=== PATIENT | male | born 1940 | race Two or more races ===

== ENCOUNTER 2020-02-17 11:52 | Emergency (ER) | payer OTHER ==
[~2020-02-17] VITALS: Ht 170.2 cm; Wt 93.4 kg
[~2020-02-17 11:52] MED LIST: CLONIDINE; LISIPOW; NORVASC
[2020-02-17] MEDS ORDERED: cloNIDine HCL 0.1 MG TAB PO ONE (12:15)
[2020-02-17 12:52] LABS: Basophils # (auto) 0.1 10 ^3/uL (0-0.2); Basophils % (auto) 0.8 % (0.0-2.0); Eosinophils # (auto) 0.3 10 ^3/uL (0-0.8); Eosinophils % (auto) 4.1 % (0.0-7.0); Hematocrit 50.1 % (41.0-53.0); Hemoglobin 17.2 g/dL (13.5-17.5); Lymphocytes # (auto) 2.1 10 ^3/uL (0.4-5.4); Lymphocytes % (auto) 25.4 % (10.0-50.0); Mean Corpuscular Hemoglobin 32.2 pg (28.0-32.0); Mean Corpuscular Hgb Conc. 34.4 g/dL (32.0-36.0); Mean Corpuscular Volume 93.6 fL (80.0-100.0); Monocytes # (auto) 0.9 10 ^3/uL (0-1.3); Monocytes % (auto) 11.6 % (0.0-12.0); Neutrophils # (auto) 4.7 10 ^3/uL (1.6-8.6); Neutrophils % (auto) 58.1 % (37.0-80.0); Nucleated Red Blood Cells % 0.1 %; Platelet Count (auto) 187 10^3/uL (140-450); Red Blood Cells 5.35 10^6/uL (4.5-5.90); Red Cell Distribution Width 13.9 % (11.8-14.3); White Blood Cell 8.1 10^3/uL (4.4-10.8)
[2020-02-17] MEDS ORDERED: hydrALAZINE HCL 20 MG/ML VL IV ONE (13:00)
[2020-02-17 13:05] LABS: Albumin 3.6 g/dL (3.4-5.0); Anion Gap 9 (5-15); Blood Urea Nitrogen 18 mg/dL (7-18); Calcium 8.7 mg/dL (8.5-10.1); Carbon Dioxide 22 mmol/L (21-32); Chloride 107 mmol/L (98-107); Glucose 121 mg/dL (74-106); Potassium 3.9 mmol/L (3.5-5.1); Sodium 138 mmol/L (136-145)
[2020-02-17 13:08] LABS: Urine Bacteria NONE SEEN /hpf (None Seen); Urine Blood Negative /uL (Negative); Urine Specific Gravity 1.005 (1.001-1.035); Urine WBC <1 /hpf (0 - 3)
[2020-02-17 13:10] LABS: Alanine Aminotransferase 33 U/L (16-61); Alkaline Phosphatase 82 U/L (45-117); Aspartate Aminotransferase 26 U/L (15-37); BUN/Creatinine Ratio 19.6; Bilirubin, Total 0.9 mg/dL (0.2-1.0); GFR African American 102 mL/min; GFR Non-African American 85 mL/min; Total Protein 7.7 g/dL (6.4-8.2)
[2020-02-17] MEDS ORDERED: cefTRIAXone 1GM/50ML D5W 50 ML IV ONE (13:15)
[2020-02-17] MEDS ORDERED: AZITHROMYCIN 500MG/ 250ML 250 ML IV ONE (13:15)
[2020-02-17 16:52] VITALS: BP 172/60
== END 2020-02-17 17:06 | disposition home or self-care (01) ==
LOC: ER 11:52
DX: I10 Essential (primary) hypertension (principal); J18.9 Pneumonia, unspecified organism; I25.10 Atherosclerotic heart disease of native coronary artery without angina pectoris
CPT/HCPCS: 36415; 71046; 80053; 81001; 84484; 85025; 87040; 93005; 96365; 96366; 96367; 99285; J0456; J0696

== ENCOUNTER → 2020-06-30 | Emergency (ER) | payer OTHER ==
[~2020-06-30] VITALS: Ht 170.2 cm; Wt 95.3 kg
[~2020-06-30] MED LIST changes: +IOHEXOL 350 MG/ML 100ML IJ ONE; +LABETALOL HCL 5 MG/ML 4ML SYRINGE IV ONE; +PIPERACILLIN-TAZOB 3.375GM 100 ML IV ONE; +VANCOMYCIN 1GM/250ML 250 ML IV ONE; +cloNIDine HCL 0.1 MG TAB PO ONE
[2020-06-30 22:10] LABS: Basophils # (auto) 0.1 10 ^3/uL (0-0.2); Basophils % (auto) 0.7 % (0.0-2.0); Eosinophils # (auto) 0.2 10 ^3/uL (0-0.8); Eosinophils % (auto) 2.5 % (0.0-7.0); Hematocrit 50.2 % (41.0-53.0); Hemoglobin 17.3 g/dL (13.5-17.5); Lymphocytes # (auto) 2.1 10 ^3/uL (0.4-5.4); Lymphocytes % (auto) 22.2 % (10.0-50.0); Mean Corpuscular Hemoglobin 32.3 pg (28.0-32.0); Mean Corpuscular Hgb Conc. 34.6 g/dL (32.0-36.0); Mean Corpuscular Volume 93.4 fL (80.0-100.0); Monocytes # (auto) 1.1 10 ^3/uL (0-1.3); Monocytes % (auto) 11.1 % (0.0-12.0); Neutrophils % (auto) 63.5 % (37.0-80.0); Nucleated Red Blood Cells % 0.1 %; Platelet Count (auto) 208 10^3/uL (140-450); Red Blood Cells 5.37 10^6/uL (4.5-5.90); Red Cell Distribution Width 13.6 % (11.8-14.3); White Blood Cell 9.5 10^3/uL (4.4-10.8)
[2020-06-30 22:15] LABS: Urine Bacteria NONE SEEN /hpf (None Seen); Urine Blood Negative /uL (Negative); Urine Hyaline Cast FEW /lpf (0 - 2); Urine Mucus FEW (None Seen); Urine Specific Gravity 1.016 (1.001-1.035); Urine WBC 2 /hpf (0 - 3)
[2020-06-30 22:27] LABS: Albumin 3.9 g/dL (3.4-5.0); Anion Gap 6 (5-15); Blood Urea Nitrogen 21 mg/dL (7-18); Calcium 8.7 mg/dL (8.5-10.1); Carbon Dioxide 23 mmol/L (21-32); Chloride 110 mmol/L (98-107); Glucose 108 mg/dL (74-106); Magnesium 2.6 mg/dL (1.6-2.6); Sodium 139 mmol/L (136-145)
[2020-06-30 22:33] LABS: Alanine Aminotransferase 41 U/L (16-61); Alkaline Phosphatase 95 U/L (45-117); Aspartate Aminotransferase 25 U/L (15-37); BUN/Creatinine Ratio 18.9; Bilirubin, Total 0.8 mg/dL (0.2-1.0); GFR African American 82 mL/min; GFR Non-African American 68 mL/min
[2020-06-30 23:06] LABS: INR 1.02 (0.9-1.15); Partial Thromboplastin Time 27.6 sec (23.0-31.2)
[2020-07-01 04:04] VITALS: BP 138/65
== END | disposition home or self-care (01) ==
LOC: ER 20:52
DX: G04.91 Myelitis, unspecified (principal); I10 Essential (primary) hypertension; E78.5 Hyperlipidemia, unspecified; I25.10 Atherosclerotic heart disease of native coronary artery without angina pectoris
CPT/HCPCS: 36415; 70450; 71045; 71275; 72125; 72131; 80053; 81001; 83605; 83735; 83880; 84443; 84484; 85025; 85379; 85610; 85652; 85730; 86141; 87040; 93005; 96365; 96366; 96368

== ENCOUNTER 2020-11-23 09:48 | Inpatient (IN) | payer OTHER ==
[~2020-11-23] VITALS: Ht 175.3 cm; Wt 89.4 kg
[~2020-11-23 09:48] MED LIST changes: -IOHEXOL 350 MG/ML 100ML IJ ONE; -LABETALOL HCL 5 MG/ML 4ML SYRINGE IV ONE; -PIPERACILLIN-TAZOB 3.375GM 100 ML IV ONE; -VANCOMYCIN 1GM/250ML 250 ML IV ONE; -cloNIDine HCL 0.1 MG TAB PO ONE
[2020-11-23 11:02] LABS: Basophils # (auto) 0 10 ^3/uL (0-0.2); Basophils % (auto) 0.5 % (0.0-2.0); Eosinophils # (auto) 0.2 10 ^3/uL (0-0.8); Eosinophils % (auto) 1.9 % (0.0-7.0); Hematocrit 46.8 % (41.0-53.0); Hemoglobin 16.6 g/dL (13.5-17.5); Lymphocytes % (auto) 19.2 % (10.0-50.0); Mean Corpuscular Hemoglobin 33.1 pg (28.0-32.0); Mean Corpuscular Hgb Conc. 35.5 g/dL (32.0-36.0); Mean Corpuscular Volume 93.4 fL (80.0-100.0); Monocytes # (auto) 0.9 10 ^3/uL (0-1.3); Monocytes % (auto) 9.3 % (0.0-12.0); Neutrophils % (auto) 69.1 % (37.0-80.0); Nucleated Red Blood Cells % 0.1 %; Platelet Count (auto) 211 10^3/uL (140-450); Red Blood Cells 5.01 10^6/uL (4.5-5.90); Red Cell Distribution Width 13.3 % (11.8-14.3); White Blood Cell 10.2 10^3/uL (4.4-10.8)
[2020-11-23 11:20] LABS: Albumin 3.2 g/dL (3.4-5.0); Anion Gap 4 (5-15); Blood Urea Nitrogen 21 mg/dL (7-18); Calcium 8.2 mg/dL (8.5-10.1); Carbon Dioxide 25 mmol/L (21-32); Chloride 109 mmol/L (98-107); Glucose 173 mg/dL (74-106); Potassium 3.7 mmol/L (3.5-5.1); Sodium 138 mmol/L (136-145)
[2020-11-23 11:24] LABS: Alanine Aminotransferase 40 U/L (16-61); Alkaline Phosphatase 92 U/L (45-117); Aspartate Aminotransferase 20 U/L (15-37); BUN/Creatinine Ratio 20.6; Bilirubin, Total 0.9 mg/dL (0.2-1.0); GFR African American 91 mL/min; GFR Non-African American 75 mL/min; Total Protein 7.4 g/dL (6.4-8.2)
[2020-11-23] MEDS ORDERED: SODIUM CHLORIDE 0.9% 1,000 ML IV ONE (12:15)
[2020-11-23] MEDS ORDERED: methylPREDNISolone SOD SUCC 125 MG/2 ML VL IV ONE (12:30)
[2020-11-23] MEDS ORDERED: ATORVASTATIN 20 MG TAB PO ONE (13:00)
[2020-11-23] MEDS ORDERED: HEPARIN DRIP/D5W 100UNITS/ML 250 ML IV SCH ×2 (13:00→13:15)
[2020-11-23] MEDS ORDERED: NITROGLYCERIN 0.2MG/HR TOPICAL PATCH TD ONE (13:00)
[2020-11-23 13:04] LABS: INR 1.03 (0.9-1.15); Partial Thromboplastin Time 29.6 sec (23.0-31.2)
[2020-11-23] MEDS ORDERED: SODIUM CHL 0.9% 50 ML ONE (13:04)
[2020-11-23] MEDS ORDERED: fentaNYL CITRATE 100 MCG/2 ML VL ONE (13:04)
[2020-11-23] MEDS ORDERED: ANGIOMAX 250 MG VIAL IV ONE (13:04)
[2020-11-23] MEDS ORDERED: MIDAZOLAM HCL 1MG/1ML-2 ML VIAL ONE (13:04)
[2020-11-23] MEDS ORDERED: IOHEXOL 350 MG/ML 100ML IJ ONE (13:10)
[2020-11-23] MEDS ORDERED: LIDOCAINE 2%HCL (LOCAL ANESTH.) INJ 20ML MDV ONE (13:10)
[2020-11-23] MEDS ORDERED: EPINEPHrine HCL 1 MG/10 ML SYRG ONE (13:52)
[2020-11-23] MEDS ORDERED: ATROPINE SULF 1 MG/10ml SYR ONE (13:52)
[2020-11-23] MEDS ORDERED: CLOPIDOGREL 300 MG TAB ONE (14:27)
[2020-11-23] MEDS ORDERED: ASPirin 325 MG TAB ONE (14:27)
[2020-11-23] MEDS ORDERED: LABETALOL HCL 5 MG/ML ML 20ML VIAL IV ONE (14:47)
[2020-11-23] MEDS ORDERED: NITROGLYCERIN 0.4 MG SL TAB SL PRN (15:30)
[2020-11-23] MEDS ORDERED: MORPHINE SULF INJ 2 MG/ML SYRINGE 1ML IV PRN (15:30)
[2020-11-23] MEDS ORDERED: LABETALOL HCL 5 MG/ML 4ML SYRINGE IV PRN (15:30)
[2020-11-23] MEDS ORDERED: SUCRALFATE 1 GM/10 ML ORAL SUSP ONE (16:56)
[2020-11-23] MEDS ORDERED: SUCRALFATE 1 GM TAB PO ONE (17:00)
[2020-11-23] MEDS ORDERED: LISI-646 PO (18:56)
[2020-11-23] MEDS ORDERED: ATOR40TA52 PO (18:56)
[2020-11-23] MEDS ORDERED: CLON0.3T PO (18:56)
[2020-11-23 22:00] VITALS: BP 187/120
[2020-11-23] MEDS ORDERED: METOPROLOL SUCCINATE XL 50 MG TAB PO SCH (22:00)
[2020-11-23] MEDS: ONDANSETRON ODT 4 MG TAB PO PRN (22:22)
[2020-11-23] MEDS: PANTOPRAZOLE 40 MG/10 ML VIAL INJ IV SCH (22:47)
[2020-11-23] MEDS: ATORVASTATIN 20 MG TAB PO SCH (22:48)
[2020-11-24] MEDS: LABETALOL HCL 5 MG/ML 4ML SYRINGE IV PRN ×6 (00:12→16:40)
[2020-11-24] MEDS: ONDANSETRON ODT 4 MG TAB PO PRN (03:15)
[2020-11-24 05:00] VITALS: BP 172/93
[2020-11-24 06:50] LABS: Basophils # (auto) 0 10 ^3/uL (0-0.2); Eosinophils # (auto) 0 10 ^3/uL (0-0.8); Hematocrit 41.9 % (41.0-53.0); Lymphocytes # (auto) 1.3 10 ^3/uL (0.4-5.4); Lymphocytes % (auto) 6.2 % (10.0-50.0); Mean Corpuscular Hemoglobin 33.2 pg (28.0-32.0); Mean Corpuscular Hgb Conc. 35.7 g/dL (32.0-36.0); Mean Corpuscular Volume 92.9 fL (80.0-100.0); Monocytes # (auto) 1.2 10 ^3/uL (0-1.3); Monocytes % (auto) 5.5 % (0.0-12.0); Neutrophils # (auto) 18.5 10 ^3/uL (1.6-8.6); Neutrophils % (auto) 88.3 % (37.0-80.0); Platelet Count (auto) 208 10^3/uL (140-450); Red Blood Cells 4.51 10^6/uL (4.5-5.90); Red Cell Distribution Width 13.2 % (11.8-14.3)
[2020-11-24 08:00] VITALS: BP 159/86
[2020-11-24] MEDS: ASPirin-EC 81 mg tab PO SCH (10:00)
[2020-11-24] MEDS: CLOPIDOGREL BISULFATE 75 MG TAB PO SCH (10:00)
[2020-11-24] MEDS: METOPROLOL TARTRATE 50 MG TAB PO SCH ×2 (10:01→21:23)
[2020-11-24] MEDS: PANTOPRAZOLE 40 MG/10 ML VIAL INJ IV SCH ×2 (10:02→21:23)
[2020-11-24] MEDS: LISINOPRIL 10 MG TAB PO SCH ×2 (10:02→21:24)
[2020-11-24 13:25] LABS: Urine Bacteria NONE SEEN /hpf (None Seen); Urine Blood Negative /uL (Negative); Urine Budding Yeast OCCASIONAL /hpf (None Seen); Urine Hyaline Cast MANY /lpf (0 - 2); Urine Mucus FEW (None Seen); Urine Specific Gravity 1.036 (1.001-1.035); Urine WBC 4 /hpf (0 - 3)
[2020-11-24] MEDS: PIPERACILLIN-TAZOB 3.375GM 100 ML IV SCH ×2 (14:39→17:48)
[2020-11-24 16:00] VITALS: BP 152/85
[2020-11-24] MEDS ORDERED: HYDROmorphone HCL 2 MG/ML VL IV PRN (16:15)
[2020-11-24] MEDS: ATORVASTATIN 20 MG TAB PO SCH (21:23)
[2020-11-24 22:00] VITALS: BP 145/75
[2020-11-25] MEDS: PIPERACILLIN-TAZOB 3.375GM 100 ML IV SCH ×4 (00:03→17:54)
[2020-11-25 05:00] VITALS: BP 147/67
[2020-11-25 07:23] LABS: Hematocrit 35.7 % (41.0-53.0); Hemoglobin 12.7 g/dL (13.5-17.5); Mean Corpuscular Hemoglobin 33.1 pg (28.0-32.0); Mean Corpuscular Hgb Conc. 35.5 g/dL (32.0-36.0); Mean Corpuscular Volume 93.1 fL (80.0-100.0); Platelet Count (auto) 177 10^3/uL (140-450); Red Blood Cells 3.83 10^6/uL (4.5-5.90); Red Cell Distribution Width 13.3 % (11.8-14.3)
[2020-11-25 07:31] LABS: Band Neutrophils % (manual) 0; Basophils % (manual) 0 (0.0-2.0); Blast Cells 0; Eosinophils % (manual) 0 (0-7); Metamyelocytes % 0; Myelocytes % 0; Promyelocytes % 0; Reactive Lymphocytes 0
[2020-11-25 07:40] LABS: Calcium 8.3 mg/dL (8.5-10.1); Potassium 4.2 mmol/L (3.5-5.1)
[2020-11-25 07:42] LABS: BUN/Creatinine Ratio 30.3
[2020-11-25 08:00] VITALS: BP 173/83
[2020-11-25] MEDS: METOPROLOL TARTRATE 50 MG TAB PO SCH ×2 (08:55→21:42)
[2020-11-25] MEDS: ASPirin-EC 81 mg tab PO SCH (08:55)
[2020-11-25] MEDS: CLOPIDOGREL BISULFATE 75 MG TAB PO SCH (08:55)
[2020-11-25] MEDS: PANTOPRAZOLE 40 MG/10 ML VIAL INJ IV SCH ×2 (08:56→21:40)
[2020-11-25] MEDS: LABETALOL HCL 5 MG/ML 4ML SYRINGE IV PRN ×7 (08:56→22:38)
[2020-11-25] MEDS: LISINOPRIL 10 MG TAB PO SCH ×2 (08:56→21:43)
[2020-11-25 09:17] LABS: Lymphocytes % (manual) 7 (10.0-50.0); Monocytes % (manual) 10 (0-12)
[2020-11-25] MEDS ORDERED: VANCOMYCIN PER PHARMACY 0 MG IV SCH (12:15)
[2020-11-25] MEDS: VANCOMYCIN 750mg/250ml 250 ML IV SCH (15:22)
[2020-11-25 16:29] VITALS: BP 193/81
[2020-11-25] MEDS ORDERED: NIFEdipine ER 30 MG TAB PO ONE (16:45)
[2020-11-25 18:40] VITALS: BP 185/84
[2020-11-25] MEDS: NIFEdipine ER 30 MG TAB PO SCH (21:41)
[2020-11-25] MEDS: ATORVASTATIN 20 MG TAB PO SCH (21:43)
[2020-11-25 22:00] VITALS: BP 178/77
[2020-11-26] VITALS: BP 128/66
[2020-11-26] MEDS: PIPERACILLIN-TAZOB 3.375GM 100 ML IV SCH ×4 (00:21→17:42)
[2020-11-26 05:00] VITALS: BP 127/70
[2020-11-26] MEDS: VANCOMYCIN 750mg/250ml 250 ML IV SCH ×2 (06:29→23:12)
[2020-11-26 07:32] LABS: Basophils # (auto) 0 10 ^3/uL (0-0.2); Basophils % (auto) 0.2 % (0.0-2.0); Eosinophils # (auto) 0 10 ^3/uL (0-0.8); Eosinophils % (auto) 0.2 % (0.0-7.0); Hematocrit 35.3 % (41.0-53.0); Hemoglobin 12.3 g/dL (13.5-17.5); Lymphocytes # (auto) 2.3 10 ^3/uL (0.4-5.4); Lymphocytes % (auto) 11.9 % (10.0-50.0); Mean Corpuscular Hemoglobin 32.7 pg (28.0-32.0); Mean Corpuscular Hgb Conc. 34.9 g/dL (32.0-36.0); Mean Corpuscular Volume 93.7 fL (80.0-100.0); Monocytes % (auto) 10.6 % (0.0-12.0); Neutrophils # (auto) 14.8 10 ^3/uL (1.6-8.6); Neutrophils % (auto) 77.1 % (37.0-80.0); Nucleated Red Blood Cells % 0.1 %; Platelet Count (auto) 190 10^3/uL (140-450); Red Blood Cells 3.77 10^6/uL (4.5-5.90); Red Cell Distribution Width 13.6 % (11.8-14.3); White Blood Cell 19.2 10^3/uL (4.4-10.8)
[2020-11-26 07:46] LABS: Potassium 3.5 mmol/L (3.5-5.1)
[2020-11-26 07:54] LABS: Albumin 3.3 g/dL (3.4-5.0); BUN/Creatinine Ratio 22.4; Calcium 8.5 mg/dL (8.5-10.1)
[2020-11-26 07:57] LABS: Bilirubin, Total 1.2 mg/dL (0.2-1.0); Total Protein 6.5 g/dL (6.4-8.2)
[2020-11-26 08:00] VITALS: BP 141/97
[2020-11-26] MEDS: ASPirin-EC 81 mg tab PO SCH (10:11)
[2020-11-26] MEDS: PANTOPRAZOLE 40 MG/10 ML VIAL INJ IV SCH ×2 (10:11→22:25)
[2020-11-26] MEDS: NIFEdipine ER 30 MG TAB PO SCH ×2 (10:12→22:26)
[2020-11-26] MEDS: METOPROLOL TARTRATE 50 MG TAB PO SCH ×2 (10:12→22:26)
[2020-11-26] MEDS: LISINOPRIL 10 MG TAB PO SCH ×2 (10:12→22:26)
[2020-11-26] MEDS: CLOPIDOGREL BISULFATE 75 MG TAB PO SCH (10:12)
[2020-11-26 16:00] VITALS: BP 157/86
[2020-11-26 22:00] VITALS: BP 127/92
[2020-11-26] MEDS: ATORVASTATIN 20 MG TAB PO SCH (22:25)
[2020-11-27] MEDS: PIPERACILLIN-TAZOB 3.375GM 100 ML IV SCH ×3 (01:04→12:00)
[2020-11-27 05:00] VITALS: BP 156/73
[2020-11-27 07:39] LABS: Basophils # (auto) 0 10 ^3/uL (0-0.2); Basophils % (auto) 0.1 % (0.0-2.0); Eosinophils # (auto) 0.2 10 ^3/uL (0-0.8); Eosinophils % (auto) 1.5 % (0.0-7.0); Hematocrit 37.8 % (41.0-53.0); Hemoglobin 13.1 g/dL (13.5-17.5); Lymphocytes # (auto) 2.2 10 ^3/uL (0.4-5.4); Lymphocytes % (auto) 15.6 % (10.0-50.0); Mean Corpuscular Hemoglobin 32.4 pg (28.0-32.0); Mean Corpuscular Hgb Conc. 34.7 g/dL (32.0-36.0); Mean Corpuscular Volume 93.3 fL (80.0-100.0); Monocytes # (auto) 1.6 10 ^3/uL (0-1.3); Monocytes % (auto) 11.4 % (0.0-12.0); Neutrophils # (auto) 10.3 10 ^3/uL (1.6-8.6); Neutrophils % (auto) 71.4 % (37.0-80.0); Platelet Count (auto) 195 10^3/uL (140-450); Red Blood Cells 4.05 10^6/uL (4.5-5.90); Red Cell Distribution Width 13.6 % (11.8-14.3); White Blood Cell 14.4 10^3/uL (4.4-10.8)
[2020-11-27 07:52] LABS: Calcium 8.6 mg/dL (8.5-10.1); Potassium 3.5 mmol/L (3.5-5.1)
[2020-11-27 07:54] LABS: Albumin 3.4 g/dL (3.4-5.0); BUN/Creatinine Ratio 16.3
[2020-11-27 08:00] VITALS: BP 163/81
[2020-11-27 08:02] LABS: Bilirubin, Total 1.5 mg/dL (0.2-1.0); Total Protein 6.9 g/dL (6.4-8.2)
[2020-11-27] MEDS: PANTOPRAZOLE 40 MG/10 ML VIAL INJ IV SCH (10:11)
[2020-11-27] MEDS: METOPROLOL TARTRATE 50 MG TAB PO SCH (10:11)
[2020-11-27] MEDS: ASPirin-EC 81 mg tab PO SCH (10:11)
[2020-11-27] MEDS: NIFEdipine ER 30 MG TAB PO SCH (10:11)
[2020-11-27] MEDS: CLOPIDOGREL BISULFATE 75 MG TAB PO SCH (10:11)
[2020-11-27] MEDS: LISINOPRIL 10 MG TAB PO SCH (10:12)
[2020-11-27 11:36] VITALS: BP 163/81
[2020-11-28] MEDS ORDERED: PANT40TA57 PO (16:30)
[2020-11-28] MEDS ORDERED: MET50T PO (16:30)
[2020-11-28] MEDS ORDERED: SUCR1TAB PO (16:30)
[2020-11-28] MEDS ORDERED: CLOP75TA70 PO (16:30)
[2020-11-29] MEDS ORDERED: ATOR80TA PO (14:45)
[2020-11-29] MEDS ORDERED: LISI-648 PO (14:45)
== END 2020-11-27 13:20 | disposition home or self-care (01) | DRG 246 ==
LOC: ER 09:48 → EDBD 09:48 → EAST 09:49 → TELE-EAST 18:10
PROVIDERS: ADMIT Specialist; ATTEND Specialist
PROC: 02C03ZZ Extirpation of Matter from Coronary Artery, One Artery, Percutaneous Approach (ICD-10-PCS; principal; 2020-11-23)
PROC: 027034Z Dilation of Coronary Artery, One Artery with Drug-eluting Intraluminal Device, Percutaneous Approach (ICD-10-PCS; 2020-11-23)
PROC: 4A023N7 Measurement of Cardiac Sampling and Pressure, Left Heart, Percutaneous Approach (ICD-10-PCS; 2020-11-23)
PROC: B2111ZZ Fluoroscopy of Multiple Coronary Arteries using Low Osmolar Contrast (ICD-10-PCS; 2020-11-23)
PROC: B2151ZZ Fluoroscopy of Left Heart using Low Osmolar Contrast (ICD-10-PCS; 2020-11-23)
PROC: B41F1ZZ Fluoroscopy of Right Lower Extremity Arteries using Low Osmolar Contrast (ICD-10-PCS; 2020-11-23)
DX: I21.09 ST elevation (STEMI) myocardial infarction involving other coronary artery of anterior wall (principal); R65.11 Systemic inflammatory response syndrome (SIRS) of non-infectious origin with acute organ dysfunction; I10 Essential (primary) hypertension; R04.0 Epistaxis; E78.5 Hyperlipidemia, unspecified; Z20.822 Contact with and (suspected) exposure to COVID-19; I25.10 Atherosclerotic heart disease of native coronary artery without angina pectoris; F32.9 Major depressive disorder, single episode, unspecified; Z79.02 Long term (current) use of antithrombotics/antiplatelets; Z79.899 Other long term (current) drug therapy; Z95.5 Presence of coronary angioplasty implant and graft
CPT/HCPCS: 36415; 70450; 71045; 71250; 74176; 75710; 76705; 80048; 80053; 81001; 83735; 83880; 84484; 85007; 85025; 85027; 85610; 85730; 87040; 87086; 87426; 92933; 93005; 93306; 93458; 96361; 96374; 99152; 99153; C1874; C9113; G0378; J2250; J2543; J3490; Q0162